=== PATIENT | male | born 1980 | race Caucasian/White ===

== ENCOUNTER 2019-06-07 01:55 | Emergency (ER) | payer OTHER ==
[2019-06-07] MEDS ORDERED: HYDROCODONE/ACETAMINOPHEN 5-325 MG (6 TAB/ER DISP) PO PRN (04:51)
--- NOTE | 2019-06-07 04:55 | ER Document Report ---
HPI - HPI Time Seen by Provider: 06/07/19 04:28 Pain Level: 2 Context: Patient is a 38-year-old male that comes emergency department for chief complaint of approximately 5 days of pain in the rectum area. He states he has some pain with bowel movements, over the past day or so he is having a lot of trouble sitting down in addition to this. He denies fever, abdominal pain, bloody bowel movements. He states he has had similar symptoms in the past but they went away. He denies constipation, vomiting, or any other complaints. He has a history of hypertension and is medicated for this, denies medical history or medications otherwise. He denies anal intercourse, trauma, IV drug abuse. - CONSTITUTIONAL Constitutional: DENIES: Fever, Chills - EENT EENT: DENIES: Sore Throat, Ear Pain, Eye problems - NEURO Neurology: DENIES: Headache, Weakness, Vision blurred, Dizzinesss / Vertigo - CARDIOVASCULAR Cardiovascular: DENIES: Chest pain - RESPIRATORY Respiratory: DENIES: Trouble Breathing, Coughing - GASTROINTESTINAL Gastrointestinal: DENIES: Abdominal Pain, Black / Bloody Stools - URINARY Urinary: DENIES: Dysuria, Urgency, Frequency - MUSCULOSKELETAL Musculoskeletal: DENIES: Extremity pain Past Medical History - General Information source: Patient - Social History Smoking Status: Former Smoker Frequency of alcohol use: None Drug Abuse: None Lives with: Family Family History: Reviewed & Not Pertinent Patient has suicidal ideation: No Patient has homicidal ideation: No - Past Medical History Cardiac Medical History: Reports: Hx Hypertension Vertical Provider Document - CONSTITUTIONAL General Appearance: WD/WN, No Apparent Distress - Patient does not sit straight but he does not appear to be in significant pain either - INFECTION CONTROL TRAVEL OUTSIDE OF THE [place] IN LAST 30 DAYS: No - HEENT HEENT: Atraumatic, Normal ENT Exam, Normocephalic - NECK Neck: Normal Inspection - RESPIRATORY Respiratory: Breath Sounds Normal, No Respiratory Distress - CARDIOVASCULAR Cardiovascular: Regular Rate, Regular Rhythm - GI/ABDOMEN Gastrointestinal: Abdomen Soft, Abdomen Non-Tender. negative: Abdomen Tender Notes: Rectal exam performed with Catherine MONTOYA present at bedside. This indicates somewhat large external hemorrhoid but there is no evidence of thrombosis, there is no surrounding erythema, induration, fluctuance, rectal exam is unremarkable, no noted abscess or concerning findings otherwise. No current bleeding, no purulent drainage. - BACK Back: Normal Inspection - MUSCULOSKELETAL/EXTREMETIES Musculoskeletal/Extremeties: MAEW, FROM, Non-Tender - NEURO Level of Consciousness: Awake, Alert, Appropriate Motor/Sensory: No Motor Deficit, No Sensory Deficit - DERM Integumentary: Warm, Dry, No Rash Course - Re-evaluation Re-evalutation: Exam shows external hemorrhoid, this is not thrombosed, there is no evidence of infection. Discussed treatment, details, follow-up instructions, return precautions. Patient states appreciation and agreement. - Vital Signs Vital signs: Temp Pulse Resp BP Pulse Ox 98.1 F 89 20 157/86 H 100 06/07/19 02:01 06/07/19 02:01 06/07/19 02:01 06/07/19 02:01 06/07/19 02:01 Discharge - Discharge Clinical Impression: External hemorrhoid, Rectal pain Condition: Stable Disposition: HOME, SELF-CARE Additional Instructions: You have a fairly large external hemorrhoid but there is no clot in it and there is no noted infection or abscess. Use a suppository as prescribed, stool softener as prescribed, and pain medication only if needed. Symptoms should gradually resolve. See additional instructions for care of this below. Avoid any straining on the toilet. If symptoms continue call the listed referral for close follow-up and additional management. Return for any concerning symptoms including severe worsening pain, fever, etc. You have hemorrhoids. These are formed by enlargement of veins around the anus. The cause is increased pressure in the veins, from or straining at bowel movements. Hemorrhoids often cause itching and bleeding with bowel movements. When a hemorrhoid becomes clotted, severe pain and swelling result. Soothing creams and suppositories are often prescribed. Warm sitz-baths may also decrease pain, swelling, and itching. Eat a high-fiber diet. Stool softeners such as Metamucil will help. Keep the area very clean. Medicated cleansing pads (such as Tucks) are useful after bowel movements. A hose-mounted shower unit (like a shower massager at low water pressure) can be used to clean around tender hemorrhoid tags. You should call the doctor or return if you develop fever, increasing pain, or an enlarging mass around the anus, or if you simply fail to improve with treatment. Prescriptions: Phenylephrine HCl [Anusol Suppository] 1 supp.rect OH BID #28 supp.rect Docusate Sodium [Colace 100 mg Capsule] 100 mg PO ASDIR PRN #30 capsule PRN Reason: Lidocaine HCl 30 gm TP ASDIR PRN #1 cream..g. PRN Reason: Referrals: [facility] [Provider Group] - Follow up in 3-5 days
[2019-06-07 05:19] VITALS: BP 128/72
--- NOTE | 2019-06-07 15:59 | ER Document Report ---
Doctor's Note Notes: 06/07/19 15:58 Received a call from the [facility] pharmacy for clarification on a prescription for phenylephrine or Anusol suppository. The chart indicates phenylephrine and that in parentheses Anusol suppository, I had the pharmacist use Anusol suppositories for the patient's hemorrhoidal complaint
== END 2019-06-07 05:05 | disposition home or self-care (01) ==
LOC: ER 01:55
DX: K64.4 Residual hemorrhoidal skin tags (principal); K62.89 Other specified diseases of anus and rectum; I10 Essential (primary) hypertension; Z87.891 Personal history of nicotine dependence
CPT/HCPCS: 99282